=== PATIENT | female | born 1970 | race Caucasian/White ===

== ENCOUNTER 2020-07-21 14:27 | Inpatient (IN) | payer MEDICAID ==
[~2020-07-21] VITALS: Ht 157.5 cm; Wt 73.6 kg
[2020-07-21] MEDS ORDERED: ONDANSETRON HCL 4 MG/2 ML VIAL IV ONE (14:45)
[2020-07-21] MEDS ORDERED: SODIUM CHLORIDE 0.9% 1,000 ML IVB ONE (14:45)
[2020-07-21] MEDS ORDERED: MORPHINE SULFATE 4 MG/ML SYR/VIAL IV ONE (14:45)
[2020-07-21] MEDS ORDERED: metroNIDAZOLE 500MG/100ML 100 ML IV ONE (15:15)
[2020-07-21 15:36] LABS: Basophils # (auto) 0 10 ^3/uL (0-0.2); Basophils % (auto) 0.3 % (0.0-2.0); Eosinophils # (auto) 0.1 10 ^3/uL (0-0.8); Eosinophils % (auto) 0.3 % (0.0-7.0); Hematocrit 46.3 % (36.0-46.0); Hemoglobin 15.5 g/dL (12.2-16.2); Lymphocytes # (auto) 1.2 10 ^3/uL (0.4-5.4); Mean Corpuscular Hemoglobin 30.4 pg (28.0-32.0); Mean Corpuscular Hgb Conc. 33.5 g/dL (32.0-36.0); Mean Corpuscular Volume 90.8 fL (80.0-100.0); Monocytes # (auto) 0.7 10 ^3/uL (0-1.3); Monocytes % (auto) 4.2 % (0.0-12.0); Neutrophils # (auto) 15.4 10 ^3/uL (1.6-8.6); Neutrophils % (auto) 88.2 % (37.0-80.0); Platelet Count (auto) 283 10^3/uL (140-450); Red Blood Cells 5.09 10^6/uL (4.0-5.20); Red Cell Distribution Width 13.2 % (11.8-14.3); White Blood Cell 17.5 10^3/uL (4.4-10.8)
[2020-07-21 15:52] LABS: Albumin 3.8 g/dL (3.4-5.0); BUN/Creatinine Ratio 11.6; Calcium 9.3 mg/dL (8.5-10.1)
[2020-07-21 15:55] LABS: Bilirubin, Total 0.4 mg/dL (0.2-1.0); Total Protein 8.6 g/dL (6.4-8.2)
[2020-07-21] MEDS ORDERED: cefTRIAXone 1GM/50ML D5W 50 ML IV ONE (16:00)
[2020-07-21] MEDS ORDERED: MORPHINE SULF INJ 2 MG/ML SYRINGE 1ML IV PRN (16:00)
[2020-07-21] MEDS ORDERED: TEMAZEPAM 15 MG CAP PO PRN (16:00)
[2020-07-21] MEDS ORDERED: NITROGLYCERIN 0.4 MG SL TAB SL PRN (16:00)
[2020-07-21] MEDS ORDERED: traMADol HCL 50 MG TAB PO PRN (16:00)
[2020-07-21] MEDS ORDERED: GOLYTELY 4L KIT PO ONE (17:45)
[2020-07-21] MEDS ORDERED: NAPR375T27 PO (17:47)
[2020-07-21] MEDS ORDERED: ALPR1TAB2 PO (17:47)
[2020-07-21] MEDS: FAMOTIDINE (10MG/ML) 2ML VL IV SCH (17:50)
[2020-07-21] MEDS: SODIUM CHLORIDE 0.9% 1,000 ML IV SCH (17:50)
[2020-07-21] MEDS: ACETAMINOPHEN 500 MG TAB PO PRN (17:51)
--- NOTE | 2020-07-21 18:00 | NUR ---
T 101, Tylenol given and cooling measure placed.
[2020-07-21] MEDS: MORPHINE SULF INJ 2 MG/ML SYRINGE 1ML IV PRN ×2 (18:02→22:20)
[2020-07-21] MEDS: PROMETHAZINE HCL 25 MG/ML 1ML IV PRN ×2 (18:02→22:20)
--- NOTE | 2020-07-21 18:05 | NUR ---
Telemetry admit from ER FELIPE PETERSONNIFER admitted to Telemetry unit after SBAR received. Patient oriented to NIKKI PEDRAZA, primary RN, unit, room, bed, and unit policies regarding patient care and visiting hours. Patient now on continuous telemetry monitoring, tele box # [id number] and telemetry reading on arrival to unit is . Patient placed on bedside oxygen, weighed by bedscale and encouraged to call if they need something. All questions and concerns addressed, patient verbalized understanding.
--- NOTE | 2020-07-21 18:15 | NUR ---
Urine and stool cup given to the patient for sample, teaching explained, verbalized understanding.
--- NOTE | 2020-07-21 18:20 | NUR ---
Covid swab sent.
[2020-07-21 19:34] LABS: Urine Bacteria NONE SEEN /hpf (None Seen); Urine Blood Negative /uL (Negative); Urine Mucus FEW (None Seen); Urine Specific Gravity 1.013 (1.001-1.035); Urine WBC 1 /hpf (0 - 5)
--- NOTE | 2020-07-21 19:35 | NUR ---
OPENING SHIFT NOTE Assumed care of patient who is A&O x4. Currently on RA with no s/s of distress. Reports 6/10 right flank pain and mild nausea. Pain management options discussed. PIV in Left forearm is intact. IVF infusing as ordered. POC discussed and patient verbalizes understanding. Golytely at bedside and patient is working on drinking it. Patient to be NPO at 0000 for pending colonoscopy with Dr. Baron tomorrow. 07/22/20. Bed is in low locked position with side rails up x2. Call light is within reach and patient encouraged to call for assistance when needed. Will continue to monitor for changes PRN.
[2020-07-21 19:43] LABS: INR 0.99 (0.9-1.15)
[2020-07-21 20:00] VITALS: BP 110/67
[2020-07-21 22:00] VITALS: BP 110/67
--- NOTE | 2020-07-21 22:00 | NUR ---
BOWEL PREP Patient has only consumed approximately 1/4 of Golytely. Reinforced that 2/3 needs to be consumed tonight and the remaining 1/3 is to be consumed in the morning in preparation for colonoscopy tomorrow. Patient states that it is making her nauseous and she cannot drink it. Will continue to attempt to encourage patient to drink the bowel prep as ordered.
[2020-07-21] MEDS: metroNIDAZOLE 500MG/100ML 100 ML IV SCH (22:04)
[2020-07-22] MEDS: SODIUM CHLORIDE 0.9% 1,000 ML IV SCH ×3 (02:00→21:30)
[2020-07-22] MEDS: MORPHINE SULF INJ 2 MG/ML SYRINGE 1ML IV PRN ×4 (03:42→21:37)
[2020-07-22] MEDS: ACETAMINOPHEN 500 MG TAB PO PRN ×3 (03:42→21:29)
--- NOTE | 2020-07-22 03:44 | NUR ---
Patient reports 8/10 pain in right abdomen as well as feeling flushed. Medicated according to orders. Temperature taken and is 101.4/ Cooling measures applied and patient medicated for fever. Will reassess.
[2020-07-22] MEDS: FAMOTIDINE (10MG/ML) 2ML VL IV SCH ×2 (03:54→15:10)
--- NOTE | 2020-07-22 04:44 | NUR ---
REASSESSMENT Temperature reassessed and is now 97.9.
[2020-07-22 05:18] VITALS: BP 143/80
[2020-07-22] MEDS: metroNIDAZOLE 500MG/100ML 100 ML IV SCH ×3 (05:30→21:29)
[2020-07-22] MEDS ORDERED: GOLYTELY 4L KIT PO ONE (06:00)
[2020-07-22 06:49] LABS: Basophils # (auto) 0 10 ^3/uL (0-0.2); Basophils % (auto) 0.3 % (0.0-2.0); Eosinophils # (auto) 0 10 ^3/uL (0-0.8); Eosinophils % (auto) 0.2 % (0.0-7.0); Hematocrit 38.7 % (36.0-46.0); Hemoglobin 13.3 g/dL (12.2-16.2); Lymphocytes % (auto) 9.3 % (10.0-50.0); Mean Corpuscular Hemoglobin 31.4 pg (28.0-32.0); Mean Corpuscular Hgb Conc. 34.3 g/dL (32.0-36.0); Mean Corpuscular Volume 91.7 fL (80.0-100.0); Monocytes # (auto) 0.7 10 ^3/uL (0-1.3); Neutrophils # (auto) 9.3 10 ^3/uL (1.6-8.6); Neutrophils % (auto) 84.2 % (37.0-80.0); Platelet Count (auto) 196 10^3/uL (140-450); Red Blood Cells 4.22 10^6/uL (4.0-5.20)
[2020-07-22 07:22] LABS: Albumin 2.8 g/dL (3.4-5.0); Calcium 8.2 mg/dL (8.5-10.1); Potassium 3.9 mmol/L (3.5-5.1)
[2020-07-22 07:25] LABS: BUN/Creatinine Ratio 9.5; Bilirubin, Total 0.3 mg/dL (0.2-1.0); Total Protein 6.4 g/dL (6.4-8.2)
[2020-07-22] MEDS ORDERED: SODIUM CHLORIDE LOCK 0 ML ONE (08:43)
[2020-07-22] MEDS ORDERED: diphenhdrAMINE HCL 50 MG/1 ML VL ONE (08:43)
[2020-07-22] MEDS ORDERED: fentaNYL CITRATE 100 MCG/2 ML VL ONE (08:43)
[2020-07-22] MEDS ORDERED: MIDAZOLAM HCL 5 MG/ML-1ML VIAL ONE (08:43)
--- NOTE | 2020-07-22 08:47 | NUR ---
Spoke to Dr. Baron regarding patient did not finish Golytely, per Dr. Baron to collect stool.
[2020-07-22] MEDS: PROMETHAZINE HCL 25 MG/ML 1ML IV PRN ×3 (08:52→21:08)
[2020-07-22 09:00] VITALS: BP 135/82
[2020-07-22] MEDS ORDERED: cefTRIAXone 1GM/50ML D5W 50 ML IV SCH (09:00)
--- NOTE | 2020-07-22 10:29 | NUR ---
at bedside discussed and exam patient.
[2020-07-22 12:30] VITALS: BP 126/87
--- NOTE | 2020-07-22 14:30 | NUR ---
Stool sent to lab.
[2020-07-22 17:00] VITALS: BP 111/71
--- NOTE | 2020-07-22 19:45 | NUR ---
OPENING SHIFT NOTE Assumed care of patient who is A&O x4. Currently on RA with no s/s of distress. Reports mild nausea that started after eating and "little pain" to right upper and lower quadrants. Pain and nausea management options discussed with patient. PIV in right forearm is intact and patent. Currently infusing IVF as ordered. POC discussed and patient verbalizes understanding. Bed is in low locked position with side rails up x2. Call light is within reach and patient encouraged to call for assistance when needed. Will continue to monitor for changes PRN.
--- NOTE | 2020-07-22 20:00 | NUR ---
BLOOD TRANSFUSION Blood transfusion being managed/completed by dialysis nurse. Blood has completed and saline is now running. Patient denies any adverse effects at this time. Addendum: 07/22/20 at 2141 by SIS PEARSON RN RN disregard. charted under incorrect patient.
[2020-07-22 21:00] VITALS: BP 134/78
--- NOTE | 2020-07-22 21:05 | NUR ---
NAUSEA Patient ate 100% of dinner, and states she is now experiencing nausea. Patient provided emesis bag and medicated according to orders.
--- NOTE | 2020-07-22 21:30 | NUR ---
TEMPERATURE/PAIN Oral temperature is 100.9. Cooling measures applied and Tylenol administered according to order. Patient also reports 7/10 right sided abdominal pain. Patient medicated accordingly.
[2020-07-23] MEDS: FAMOTIDINE (10MG/ML) 2ML VL IV SCH (03:47)
[2020-07-23] MEDS: MORPHINE SULF INJ 2 MG/ML SYRINGE 1ML IV PRN (03:48)
[2020-07-23] MEDS: PROMETHAZINE HCL 25 MG/ML 1ML IV PRN (03:55)
[2020-07-23 05:00] VITALS: BP 152/82
[2020-07-23 05:35] LABS: Basophils # (auto) 0 10 ^3/uL (0-0.2); Basophils % (auto) 0.2 % (0.0-2.0); Eosinophils # (auto) 0.2 10 ^3/uL (0-0.8); Eosinophils % (auto) 2.1 % (0.0-7.0); Hematocrit 38.4 % (36.0-46.0); Hemoglobin 13.3 g/dL (12.2-16.2); Lymphocytes # (auto) 1.2 10 ^3/uL (0.4-5.4); Lymphocytes % (auto) 11.3 % (10.0-50.0); Mean Corpuscular Hemoglobin 31.5 pg (28.0-32.0); Mean Corpuscular Hgb Conc. 34.6 g/dL (32.0-36.0); Mean Corpuscular Volume 91.1 fL (80.0-100.0); Monocytes # (auto) 0.9 10 ^3/uL (0-1.3); Monocytes % (auto) 8.9 % (0.0-12.0); Neutrophils # (auto) 8.2 10 ^3/uL (1.6-8.6); Neutrophils % (auto) 77.5 % (37.0-80.0); Nucleated Red Blood Cells % 0.1 %; Platelet Count (auto) 196 10^3/uL (140-450); Red Blood Cells 4.21 10^6/uL (4.0-5.20); Red Cell Distribution Width 13.2 % (11.8-14.3); White Blood Cell 10.6 10^3/uL (4.4-10.8)
[2020-07-23] MEDS: metroNIDAZOLE 500MG/100ML 100 ML IV SCH (06:10)
[2020-07-23 06:13] LABS: Potassium 3.6 mmol/L (3.5-5.1)
[2020-07-23 06:19] LABS: Albumin 2.6 g/dL (3.4-5.0); BUN/Creatinine Ratio 7.1; Calcium 8.5 mg/dL (8.5-10.1); Magnesium 1.8 mg/dL (1.6-2.6)
[2020-07-23 06:24] LABS: Bilirubin, Total 0.2 mg/dL (0.2-1.0); Total Protein 6.4 g/dL (6.4-8.2)
--- NOTE | 2020-07-23 06:49 | NUR ---
CLOSING NOTE Patient is resting in bed with eyes closed on left side. Respirations are even and non-labored. No distress noted at this time. Flagyl infusing as ordered at this time. Care endorsed to on coming RN.
[2020-07-23 08:00] VITALS: BP 121/91
--- NOTE | 2020-07-23 08:41 | NUR ---
AMA PATIENT FOUND IN HER ROOM CRYING AND PACING. STATING SHE WANTS TO LEAVE AMA. HER DAUGHTER JUST CALLED AND SPOKE TO CHARGE NURSE BAY YELLING AT HER AND USING FOUL LANGUAGE. EXPLAINED RISKS AND BENEFITS OF LEAVING AMA TP PATIENT. SHE VERBALIZED UNDERSTANDING AND IS STILL EXPRESSING DESIRE TO LEAVE.
--- NOTE | 2020-07-23 08:50 | NUR ---
IV AND TELE IV DISCONTINUED WITH CATHETER INTACT AND PRESSURE DRESSING APPLIED. TELEMETRY BOX TAKEN OFF AND SENT TO ICU.
--- NOTE | 2020-07-23 09:00 | NUR ---
LEFT AMA PATIENT LEFT THE HOSPITAL AMA AND DID NOT ALLOW THIS RN TO COMPLETE A PHYSICAL ASSESSMENT.
== END 2020-07-23 09:30 | disposition left against medical advice (07) | DRG 720 ==
LOC: ER 14:27 → TELE-EAST 14:28
PROVIDERS: ADMIT Internal Medicine; ATTEND Internal Medicine
DX: A41.9 Sepsis, unspecified organism (principal); K52.9 Noninfective gastroenteritis and colitis, unspecified; E66.3 Overweight; F41.9 Anxiety disorder, unspecified; F17.210 Nicotine dependence, cigarettes, uncomplicated; Z20.828 Contact with and (suspected) exposure to other viral communicable diseases; Z80.0 Family history of malignant neoplasm of digestive organs; Z83.3 Family history of diabetes mellitus; K57.30 Diverticulosis of large intestine without perforation or abscess without bleeding
CPT/HCPCS: 36415; 74176; 80053; 81001; 81025; 83690; 83735; 85025; 85610; 85652; 86850; 86900; 86901; 87040; 87045; 87086; 87427; 87493; 96365; 96375; G0378; J0696; J2250; J2405; J3490